=== PATIENT | female | born 1940 | race Caucasian/White ===

== ENCOUNTER 2020-09-03 13:32 | Emergency (ER) | payer OTHER ==
[~2020-09-03 13:32] MED LIST: ACETAMINOPHEN325 MG PO; ACETAMINOPHEN500 M1 PO; AMLODIPINE BESYL5 MG PO; ANTIVERT25 MG PO; ARMOUR THYROID60 MG PO; ASPIRIN CHEWABL81 MG PO; B COMPLEX1 EACH PO; CELEXA20 MG PO; CLONIDINE1 EAC1 TD; COLACE100 MG PO; COREG 3.125M3.125 MG PO; COZAAR100 MG PO; DULCOLAX5 MG PO; ENEMA READY TO133 ML PR; HYDRALAZINE HCL25 MG PO; LAXATIVE SUPPOS10 MG PR; LEVOTHYROXINE100 MCG PO; LIPITOR40 MG PO; LOPRESSOR50 MG PO; LORAZEPAM1 MG PO; LOVENOX40 MG/0.4 SC; MICON-GUARD 2% TOP; MILK OF MA400 MG/5 M PO; MIRALAX17 GM PO; MLYLANTA/MAALOX30 ML PO; NORCO 5-325 TA1 EACH PO; NORVASC5 MG PO; PEPCID AC20 MG PO; PLAVIX75 MG PO; SENOKOT8.6 MG PO; TYLENOL650 MG PR; VITAMIN D-40010 MCG PO; VITAMIN E100 UNI3 PO
[2020-09-03 15:36] LABS: BASOPHIL 0.7 % (0-2); EOSINOPHIL 1.8 % (0-7); HCT 39.5 % (37.0-47.0); HGB 13.2 g/dl (12.5-16.0); LYMPHOCYTE 34.2 % (15-48); MCH 29.5 pg (25.0-31.0); MCHC 33.4 g/dL (32.0-36.0); MCV 88.2 fL (78.0-100.0); MONOCYTE 9.5 % (0-12); MPV 10.4 fL (6.0-9.5); NEUTROPHIL 53.6 % (41-80); NRBC 0; PLT 206 K/uL (150-400); RBC 4.48 M/uL (4.20-5.40); RDW 13.2 % (11.5-14.0); WBC 10.1 K/uL (4.0-10.5)
[2020-09-03 15:58] LABS: INR 1.08 (0.9-1.2); PROTHROMBIN TIME 13.3 SECONDS (11.4-13.6); PTT 30.4 SECONDS (22.2-34.7)
[2020-09-03 16:04] LABS: ALBUMIN 3.7 g/dL (3.4-5.0); BILIRUBIN - TOTAL 1.5 mg/dL (0.2-1.0); BUN/CREAT RATIO (CALC) 35.8 RATIO; CREATININE 0.53 mg/dL (0.51-0.95); GLOBULIN (CALCULATION) 4.1 g/dL; POTASSIUM 3.8 mmol/L (3.5-5.1); TOTAL PROTEIN 7.8 g/dL (6.4-8.2)
[2020-09-03 16:51] LABS: BILIRUBIN NEGATIVE (NEGATIVE); BLOOD NEGATIVE Ery/uL (NEGATIVE); CLARITY CLEAR (CLEAR); COLOR YELLOW (YELLOW); GLUCOSE (U) NORMAL (NORMAL); LEUKOCYTES NEGATIVE Leu/uL (NEGATIVE); NITRITE POSITIVE (NEGATIVE); PROTEIN NEGATIVE (NEGATIVE); SPECIFIC GRAVITY 1.015 (1.001-1.030); UROBILINOGEN 0.2 mg/dL (0.2-1.0)
[2020-09-03 17:03] LABS: BACTERIA 3+
== END 2020-09-03 19:04 | disposition home or self-care (01) ==
LOC: FER 13:32
PROVIDERS: Emergency Medicine
DX: I21.4 Non-ST elevation (NSTEMI) myocardial infarction (principal); R13.10 Dysphagia, unspecified; R47.9 Unspecified speech disturbances; U07.1 COVID-19; Z86.73 Personal history of transient ischemic attack (TIA), and cerebral infarction without residual deficits
CPT/HCPCS: 36415; 70450; 71045; 80053; 81001; 83605; 84145; 84484; 85025; 85610; 85730; 93005; U0002

== ENCOUNTER → 2022-01-28 | Day surgery (SDC) | payer OTHER ==
[~2022-01-28] VITALS: Ht 157.5 cm; Wt 47.8 kg
[~2022-01-28] MED LIST changes: +BUSPIRONE HCL15 MG PO; +HYDRALAZINE 50M50 MG PO; +IMODIUM A-D2 MG PO; +PRILOSEC20 MG PO; +REMERON15 MG PO; +TRAMADOL HCL50 MG PO; +UROCIT-K10 MEQ PO; +ZOLOFT 25MG TAB25 MG PO
[2022-01-28 09:44] LABS: HCT 37.8 % (37.0-47.0); MCH 26.8 pg (25.0-31.0); MCHC 31.7 g/dL (32.0-36.0); MCV 84.4 fL (78.0-100.0); MPV 10.1 fL (6.0-9.5); RBC 4.48 M/uL (4.20-5.40); RDW 13.8 % (11.5-14.0); WBC 15.1 K/uL (4.0-10.5)
[2022-01-28 10:09] LABS: ALBUMIN 3.1 g/dL (3.4-5.0); BILIRUBIN - TOTAL 1.2 mg/dL (0.2-1.0); BUN/CREAT RATIO (CALC) 31.1 RATIO; CREATININE 0.74 mg/dL (0.51-0.95); GLOBULIN (CALCULATION) 3.8 g/dL; POTASSIUM 3.4 mmol/L (3.5-5.1); TOTAL PROTEIN 6.9 g/dL (6.4-8.2)
== END | disposition home or self-care (01) ==
LOC: FAS 09:06
PROVIDERS: Surgery
DX: K52.9 Noninfective gastroenteritis and colitis, unspecified (principal); I10 Essential (primary) hypertension; E03.9 Hypothyroidism, unspecified; Z86.73 Personal history of transient ischemic attack (TIA), and cerebral infarction without residual deficits; Z88.0 Allergy status to penicillin; Z88.5 Allergy status to narcotic agent; Z88.8 Allergy status to other drugs, medicaments and biological substances
CPT/HCPCS: 36415; 80053; 82378; J2250; J2704; J7120